=== PATIENT | male | born 1990 | race African-American/Black ===

== ENCOUNTER 2019-11-05 16:37 | Emergency (ER) | payer MEDICAID ==
[~2019-11-05] VITALS: Ht 170.2 cm; Wt 69.9 kg
--- NOTE | 2019-11-05 16:53 | NUR ---
ED Nurse Note: Patient walked into ED c/o abdominal pain x1 month. Pt was seen at [facility] for the whole 2 months for the same sx and was prescribed with antacids but no relief. Hx of hernia. Denies nausea/ vomiting. Reports diarrhea x1 month. Pt is at the [facility] and collecting urine.
[2019-11-05 17:07] VITALS: BP 116/78
[2019-11-05 17:09] LABS: APPEARANCE,URINE CLEAR; BILIRUBIN, URINE NEGATIVE (NEGATIVE); COLOR,URINE PALE YELLOW; GLUCOSE, URINE (UA) NEGATIVE (NEGATIVE); KETONES,URINE NEGATIVE (NEGATIVE); LEUKOCYTE ESTERASE ,URINE 1+ (NEGATIVE); NITRITE,URINE NEGATIVE (NEGATIVE); PH,URINE 6.5 (4.5-8.0); PROTEIN,URINE NEGATIVE (NEGATIVE); UROBILINOGEN,URINE NORMAL MG/DL (0.0-1.0)
[2019-11-05] MEDS ORDERED: ZOFRAN4 M3 ORAL (17:10)
[2019-11-05] MEDS ORDERED: CARAFATE1 G1 ORAL (17:10)
[2019-11-05] MEDS ORDERED: PANTOPRAZOLE SO40 MG ORAL (17:10)
[2019-11-05] MEDS ORDERED: LORATADINE10 M1 PO (17:10)
[2019-11-05] MEDS ORDERED: VENTOLIN HFA18 GM INH (17:10)
[2019-11-05] MEDS ORDERED: POLYETHYLENE GL17 GM ORAL (17:10)
[2019-11-05] MEDS ORDERED: FAMOTIDINE20 MG ORAL (17:10)
[2019-11-05] MEDS ORDERED: DICYCLOMINE HCL10 MG ORAL (17:10)
[2019-11-05] MEDS ORDERED: COLACE100 MG ORAL (17:10)
[2019-11-05] MEDS ORDERED: SENNO8.6 MG ORAL (17:10)
[2019-11-05] MEDS ORDERED: MI-ACID80 MG PO (17:10)
[2019-11-05 17:11] LABS: BASOPHILS % (AUTO) 1.5 % (0.0-2.0); EOSINOPHILS % (AUTO) 1.9 % (0.0-3.0); HEMOGLOBIN 15.9 G/DL (14.2-18.0); LYMPHOCYTES % (AUTO) 37.9 % (20.0-45.0); MEAN CORPUSCULAR VOLUME 98 FL (80-99); MONOCYTES % (AUTO) 7.6 % (1.0-10.0); NEUTROPHILS % (AUTO) 51.1 % (45.0-75.0); PLATELET COUNT 231 K/UL (150-450); RED BLOOD COUNT 4.99 M/UL (4.70-6.10); RED CELL DISTRIBUTION WIDTH 11.7 % (11.6-14.8)
--- NOTE | 2019-11-05 17:14 | NUR ---
ED Nurse Note: Labs sent and EDPA is at the bed side
--- NOTE | 2019-11-05 17:21 | Emergency Room Report ---
History of Present Illness General Chief Complaint: Abdominal Pain Source: Patient (Judit Sharif) Present Illness HPI 29-year-old male presents to the emergency department complaining of 8 out of 10 severity abdominal discomfort that he describes as cramping and bloated sensation in addition to left lower inguinal/testicular pain. Patient reports inguinal and testicular pain began 3 days ago and have progressed. Patient reports he has been having off-and-on abdominal symptoms for most 2 months. Patient states he has been seen multiple times at [facility] and was told to follow-up with a GI specialist and was prescribed anti-acids as well as some laxatives. Patient reports he had one episode of diarrhea today. Patient reports he has been having diarrhea almost daily for 1 month. He denies blood in the stool or black tarry stools. He reports he is concerned as he is unable to pass gas. He reports on occasion feeling lightheaded. He denies nausea or vomiting, fevers or chills. He reports healthy diet with lots of vegetables. He denies ETOH use. He denies hx of GI symptoms/problems in the past prior to onset 2 months ago. He does reports hx of hernia when he was a kid in the left inguinal area. He reports he used to work out regularly but denies recent strenuous activities. he reports feeling severely bloated in his stomach area. Denies penile d/c or dysuria. (Judit Sharif) Allergies: Coded Allergies: No Known Allergies (Unverified , 11/05/19) COVID-19 Screening Contact w/high risk pt: No Recent Travel to affected area: No Experienced COVID-19 symptoms?: No (Judit Sharif) Patient History Past Medical History: see triage record Past Surgical History: none Pertinent Family History: none Reviewed Nursing Documentation: PMH: Agreed; PSxH: Agreed (Judit Sharif) Nursing Documentation-PMH Hx Asthma: Yes (Judit Sharif) Review of Systems All Other Systems: negative except mentioned in HPI (Judit Sharif) Physical Exam Vital Signs Date Time Temp Pulse Resp B/P (MAP) Pulse Ox O2 Delivery O2 Flow Rate FiO2 11/05/19 16:41 98.1 116 19 116/78 (91) 97 Room Air Sp02 EP Interpretation: reviewed, normal General Appearance: no apparent distress, alert, GCS 15, non-toxic Head: normocephalic, atraumatic Eyes: bilateral eye normal inspection, bilateral eye PERRL ENT: hearing grossly normal, normal voice Neck: full range of motion Respiratory: lungs clear, normal breath sounds, speaking full sentences Cardiovascular #1: regular rate, rhythm Gastrointestinal: normal bowel sounds, soft, non-distended, tenderness - diffuuse, LLQ and left inguinal TTP, NO palpable hernia Rectal: deferred Genitourinary: normal inspection, no CVA tenderness, other - normal cremasteric reflex. No obvious testicular swelling, palpable hernia. Musculoskeletal: back normal, normal range of motion, gait/station normal, non- tender Neurologic: alert, motor strength/tone normal, oriented x3, sensory intact, responsive, speech normal Psychiatric: judgement/insight normal Skin: no rash, normal color, normal inspection Lymphatic: no adenopathy (Judit Sharif) Medical Decision Making PA Attestation Dr. Lay is my supervising Physician whom patient management has been discussed with. (Judit Sharif) Diagnostic Impression: Primary Impression: Abdominal pain Qualified Codes: R10.84 - Generalized abdominal pain ER Course 29-year-old male presents to the emergency department complaining of 8 out of 10 severity abdominal discomfort that he describes as cramping and bloated sensation in addition to left lower inguinal/testicular pain. Patient reports inguinal and testicular pain began 3 days ago and have progressed. Patient reports he has been having off-and-on abdominal symptoms for most 2 months. Patient states he has been seen multiple times at [facility] and was told to follow-up with a GI specialist and was prescribed anti-acids as well as some laxatives. Patient reports he had one episode of diarrhea today. Patient reports he has been having diarrhea almost daily for 1 month. He denies blood in the stool or black tarry stools. He reports he is concerned as he is unable to pass gas. He reports on occasion feeling lightheaded. He denies nausea or vomiting, fevers or chills. He reports healthy diet with lots of vegetables. He denies ETOH use. He denies hx of GI symptoms/problems in the past prior to onset 2 months ago. He does reports hx of hernia when he was a kid in the left inguinal area. He reports he used to work out regularly but denies recent strenuous activities. he reports feeling severely bloated in his stomach area. Denies penile d/c or dysuria. Ddx considered but are not limited to Diverticulitis, acute appy, diarrhea,UC, PUD, GE, pancreatitis, gallstone, hernia, testicular torsion, epididymitis, UTI or STD just to name a few Vital signs: are WNL, pt. is afebrile H&PE are most consistent with abdominal pain with ORDERS: CBC:WNL -CMP: WNL -Lipase:WNL - UA: WNL -CT abdomen and Pelvis W. Contrast: Pending at time of sign out - Testicular US: Bilateral Hydrocele, small cyst in the right epididymis. ED INTERVENTIONS: -- 1000NS - Pepcid 20mg IV DISPOSITION: Pending CT imaging results. Signed out to attending physician. Labs Test 11/05/19 17:00 White Blood Count 8.0 K/UL (4.8-10.8) Red Blood Count 4.99 M/UL (4.70-6.10) Hemoglobin 15.9 G/DL (14.2-18.0) Hematocrit 49.0 % (42.0-52.0) Mean Corpuscular Volume 98 FL (80-99) Mean Corpuscular Hemoglobin 31.8 PG (27.0-31.0) Mean Corpuscular Hemoglobin Concent 32.4 G/DL (32.0-36.0) Red Cell Distribution Width 11.7 % (11.6-14.8) Platelet Count 231 K/UL (150-450) Mean Platelet Volume 8.7 FL (6.5-10.1) Neutrophils (%) (Auto) 51.1 % (45.0-75.0) Lymphocytes (%) (Auto) 37.9 % (20.0-45.0) Monocytes (%) (Auto) 7.6 % (1.0-10.0) Eosinophils (%) (Auto) 1.9 % (0.0-3.0) Basophils (%) (Auto) 1.5 % (0.0-2.0) Urine Color Pale yellow Urine Appearance Clear Urine pH 6.5 (4.5-8.0) Urine Specific Herman 1.015 (1.005-1.035) Urine Protein Negative (NEGATIVE) Urine Glucose (UA) Negative (NEGATIVE) Urine Ketones Negative (NEGATIVE) Urine Blood 2+ (NEGATIVE) Urine Nitrite Negative (NEGATIVE) Urine Bilirubin Negative (NEGATIVE) Urine Urobilinogen Normal MG/DL (0.0-1.0) Urine Leukocyte Esterase 1+ (NEGATIVE) Urine RBC 2-4 /HPF (0 - 0) Urine WBC 0-2 /HPF (0 - 0) Urine Squamous Epithelial Cells None /LPF (NONE/OCC) Urine Bacteria Few /HPF (NONE) Sodium Level 142 MMOL/L (136-145) Potassium Level 3.7 MMOL/L (3.5-5.1) Chloride Level 101 MMOL/L (98-107) Carbon Dioxide Level 28 MMOL/L (21-32) Anion Gap 13 mmol/L (5-15) Blood Urea Nitrogen 12 mg/dL (7-18) Creatinine 1.2 MG/DL (0.55-1.30) Estimat Glomerular Filtration Rate > 60 mL/min (>60) Glucose Level 111 MG/DL (74-106) Calcium Level 9.4 MG/DL (8.5-10.1) Total Bilirubin 0.9 MG/DL (0.2-1.0) Aspartate Amino Transf (AST/SGOT) 22 U/L (15-37) Alanine Aminotransferase (ALT/SGPT) 17 U/L (12-78) Alkaline Phosphatase 49 U/L (46-116) Total Protein 8.6 G/DL (6.4-8.2) Albumin 4.6 G/DL (3.4-5.0) Globulin 4.0 g/dL Albumin/Globulin Ratio 1.1 (1.0-2.7) Lipase 119 U/L (73-393) (Judit Sharif) ER Course Please refer to the initial note for the history exam and presentation Patient did have ultrasound and CT of the abdomen pelvis obtained the ultrasound had shown an epididymal cyst And questionable hydrocele no obvious torsion patient CT showing different Findings including thickened bladder wall Patient's main complaint is diffuse mid abdominal and bilateral flank region discomfort bloating sensation and diarrhea the findings do not correlate clinically to the patient's CT findings and appears to be incidental findings There is evidence of diarrhea however on the CAT scan which does correlate clinically Patient is discussed regarding taking a fiber type diet patient also requires [place] diet and reports that he has follow-up coming with his primary physician for further GI specialty referral Which I think is the best follow-up for the patient Given the lack of any emergent findings on CT Patient's blood work is all within normal limits Patient is stable for initial conservative outpatient trial Labs Test 11/05/19 17:00 White Blood Count 8.0 K/UL (4.8-10.8) Red Blood Count 4.99 M/UL (4.70-6.10) Hemoglobin 15.9 G/DL (14.2-18.0) Hematocrit 49.0 % (42.0-52.0) Mean Corpuscular Volume 98 FL (80-99) Mean Corpuscular Hemoglobin 31.8 PG (27.0-31.0) Mean Corpuscular Hemoglobin Concent 32.4 G/DL (32.0-36.0) Red Cell Distribution Width 11.7 % (11.6-14.8) Platelet Count 231 K/UL (150-450) Mean Platelet Volume 8.7 FL (6.5-10.1) Neutrophils (%) (Auto) 51.1 % (45.0-75.0) Lymphocytes (%) (Auto) 37.9 % (20.0-45.0) Monocytes (%) (Auto) 7.6 % (1.0-10.0) Eosinophils (%) (Auto) 1.9 % (0.0-3.0) Basophils (%) (Auto) 1.5 % (0.0-2.0) Urine Color Pale yellow Urine Appearance Clear Urine pH 6.5 (4.5-8.0) Urine Specific Herman 1.015 (1.005-1.035) Urine Protein Negative (NEGATIVE) Urine Glucose (UA) Negative (NEGATIVE) Urine Ketones Negative (NEGATIVE) Urine Blood 2+ (NEGATIVE) Urine Nitrite Negative (NEGATIVE) Urine Bilirubin Negative (NEGATIVE) Urine Urobilinogen Normal MG/DL (0.0-1.0) Urine Leukocyte Esterase 1+ (NEGATIVE) Urine RBC 2-4 /HPF (0 - 0) Urine WBC 0-2 /HPF (0 - 0) Urine Squamous Epithelial Cells None /LPF (NONE/OCC) Urine Bacteria Few /HPF (NONE) Sodium Level 142 MMOL/L (136-145) Potassium Level 3.7 MMOL/L (3.5-5.1) Chloride Level 101 MMOL/L (98-107) Carbon Dioxide Level 28 MMOL/L (21-32) Anion Gap 13 mmol/L (5-15) Blood Urea Nitrogen 12 mg/dL (7-18) Creatinine 1.2 MG/DL (0.55-1.30) Estimat Glomerular Filtration Rate > 60 mL/min (>60) Glucose Level 111 MG/DL (74-106) Calcium Level 9.4 MG/DL (8.5-10.1) Total Bilirubin 0.9 MG/DL (0.2-1.0) Aspartate Amino Transf (AST/SGOT) 22 U/L (15-37) Alanine Aminotransferase (ALT/SGPT) 17 U/L (12-78) Alkaline Phosphatase 49 U/L (46-116) Total Protein 8.6 G/DL (6.4-8.2) Albumin 4.6 G/DL (3.4-5.0) Globulin 4.0 g/dL Albumin/Globulin Ratio 1.1 (1.0-2.7) Lipase 119 U/L (73-393) (Mirna Lay DO) CT/MRI/US Diagnostic Results CT/MRI/US Diagnostic Results #1: Imaging Test Ordered: CT abdomen and Pelvis W. IV and Oral Contrast Impression " ". -- Per official radiology report- Please see report for specific details. CT/MRI/US Diagnostic Results #2: Imaging Test Ordered: Testicular US Impression "Bilateral hydroceles and small cyst in the right epididymis, no torsion, no visualized hernia". -- Per US technologist. (Judit Sharif) CT/MRI/US Diagnostic Results : Impression CT abdomen pelvisIMPRESSION: Urinary bladder wall thickening. Consider chronic outlet obstruction from prostatomegaly. The lumen is not pathologically distended currently. Cystitis is not excluded. Liquid distal colonic contents suggesting diarrhea. No bowel obstruction or perforation. Testicular ultrasound no obvious torsion (Mirna Lay DO) Last Vital Signs Date Time Temp Pulse Resp B/P (MAP) Pulse Ox O2 Delivery O2 Flow Rate FiO2 11/05/19 17:07 98.1 19 116/78 97 Room Air 11/05/19 17:07 116 (Judit Sharif) Status: improved (Mirna Lay DO) Disposition: HOME, SELF-CARE Condition: Stable Signed Out To: Dr. Lay (Judit Sharif) Scripts Metoclopramide Hcl* (REGLAN*) 10 Mg Tablet 10 MG ORAL BID, #15 TAB Prov: Mirna Lay DO 11/05/19 Referrals: NON PHYSICIAN (PCP) Additional Instructions: Patient is provided with the discharge instructions notified to follow up with primary doctor in the next 2-3 days otherwise return to the er with any worsening symptoms. Please note that this report is being documented using DRAGON technology. This can lead to erroneous entry secondary to incorrect interpretation by the dictating instrument. Judit Sharif November 05, 2019 17:21 Mirna Lay DO November 05, 2019 21:08
[2019-11-05 17:24] LABS: ANION GAP 13 mmol/L (5-15); BLOOD UREA NITROGEN 12 mg/dL (7-18); CALCIUM 9.4 MG/DL (8.5-10.1); CARBON DIOXIDE 28 MMOL/L (21-32); CHLORIDE 101 MMOL/L (98-107); CREATININE 1.2 MG/DL (0.55-1.30); POTASSIUM 3.7 MMOL/L (3.5-5.1); SODIUM 142 MMOL/L (136-145)
[2019-11-05 17:28] LABS: ALANINE AMINOTRANSFERASE 17 U/L (12-78); ALBUMIN 4.6 G/DL (3.4-5.0); ALBUMIN/GLOBULIN RATIO 1.1 (1.0-2.7); ALKALINE PHOSPHATASE 49 U/L (46-116); ASPARTATE AMINO TRANSFERASE 22 U/L (15-37); BILIRUBIN,TOTAL 0.9 MG/DL (0.2-1.0)
[2019-11-05] MEDS ORDERED: Omnipaque-300 100ml vial INJ PRN (17:30)
--- NOTE | 2019-11-05 18:10 | NUR ---
ED Nurse Note: Ultrasound at bedside.
--- NOTE | 2019-11-05 18:55 | NUR ---
ED Nurse Note: patient came back from CT scan in stable condition.
--- NOTE | 2019-11-05 19:10 | NUR ---
HAND-OFF: Report given to BALTAZAR Noble.
--- NOTE | 2019-11-05 19:15 | NUR ---
ED Nurse Note: Report received from BALTAZAR Trevino. Pt is aaox4, NAD. Pt is resting in bed.
--- NOTE | 2019-11-05 19:50 | Diagnostic Imaging Report ---
EXAM: CT Abdomen and Pelvis With Intravenous Contrast CLINICAL HISTORY: PAIN TECHNIQUE: Axial computed tomography images of the abdomen and pelvis with intravenous contrast. CTDI is 4.6 mGy and DLP is 240.9 mGy-cm. One or more of the following dose reduction techniques were used: automated exposure control, adjustment of the mA and/or kV according to patient size, use of iterative reconstruction technique. COMPARISON: No relevant prior studies available. FINDINGS: Lung bases: Unremarkable. No mass. No consolidation. ABDOMEN: Liver: 5 mm hypodensity in the inferior right hepatic lobe on series 4, image 25. Lesion is too small to characterize, but statistically speaking, most likely reflects a small cyst.. Gallbladder and bile ducts: Unremarkable. No calcified stones. No ductal dilation. Pancreas: Unremarkable. No mass. No ductal dilation. Spleen: Unremarkable. No splenomegaly. Adrenals: Unremarkable. No mass. Kidneys and ureters: Unremarkable. No solid mass. No hydronephrosis. Stomach and bowel: Liquid distal colonic contents suggesting diarrhea. No bowel obstruction or perforation.. PELVIS: Appendix: The appendix is not clearly demonstrated, despite obtaining thin section reconstructions. Bladder: Mild wall thickening for the degree of distention. Consider outlet obstruction from prostatomegaly. Cystitis is not excluded. Reproductive: Unremarkable as visualized. ABDOMEN and PELVIS: Intraperitoneal space: Unremarkable. No free air. No significant fluid collection. Bones/joints: No acute fracture. No dislocation. Soft tissues: Unremarkable. Vasculature: Unremarkable. No abdominal aortic aneurysm. Lymph nodes: Unremarkable. No enlarged lymph nodes. IMPRESSION: Urinary bladder wall thickening. Consider chronic outlet obstruction from prostatomegaly. The lumen is not pathologically distended currently. Cystitis is not excluded. Liquid distal colonic contents suggesting diarrhea. No bowel obstruction or perforation.
[2019-11-05] MEDS ORDERED: REGLAN10 MG ORAL (20:12)
[2019-11-05 20:24] VITALS: BP 120/75
--- NOTE | 2019-11-05 20:24 | NUR ---
ER DISCHARGE NOTE: Patient is cleared to be discharged per ERMD, pt is aox4, on room air, with stable vital signs. pt was given dc and prescription instructions, pt was able to verbalize understanding, pt id band and iv site removed without complications. pt is able to ambulate with steady gait. pt took all belongings.
--- NOTE | 2019-11-06 09:10 | Diagnostic Imaging Report ---
Indications: left testicular pain, left inguinal area pain Technique: Grayscale and duplex images of the scrotum Comparison: none Findings:The right testicle measures 3.6 cm in length. It demonstrates normal echogenicity. Normal Doppler flow. A 5 mm cyst is seen in the right epididymal head. There is a minimal hydrocele. The left testicle measures 3.2 cm in length. It demonstrates normal echogenicity and normal Doppler flow. Normal epididymis. Small hydrocele demonstrated. The left inguinal canal is unremarkable, no evidence of herniated bowel Impression: No acute abnormality Incidental findings of small bilateral hydroceles, small cyst in the right epididymal head
== END 2019-11-05 20:24 | disposition home or self-care (01) ==
LOC: EMR 16:58
DX: R10.84 Generalized abdominal pain (principal); R19.7 Diarrhea, unspecified; N50.3 Cyst of epididymis; N40.0 Benign prostatic hyperplasia without lower urinary tract symptoms
CPT/HCPCS: 36415; 74177; 76870; 80053; 81003; 83690; 85025; 96361; 96374; J7030; Q9967; S0028; Z7502; 99284

== ENCOUNTER 2019-11-22 23:27 | Emergency (ER) | payer MEDICAID ==
[~2019-11-22] VITALS: Ht 172.7 cm; Wt 65.8 kg
[~2019-11-22 23:27] MED LIST: CARAFATE1 G1 ORAL; COLACE100 MG ORAL; DICYCLOMINE HCL10 MG ORAL; FAMOTIDINE20 MG ORAL; LORATADINE10 M1 PO; MI-ACID80 MG PO; PANTOPRAZOLE SO40 MG ORAL; POLYETHYLENE GL17 GM ORAL; REGLAN10 MG ORAL; SENNO8.6 MG ORAL; VENTOLIN HFA18 GM INH; ZOFRAN4 M3 ORAL
[2019-11-22 23:35] VITALS: BP 128/82
--- NOTE | 2019-11-22 23:35 | NUR ---
ED Nurse Note: PT WALKED IN C/O RT SIDE ABDOMINAL PAIN X1DAY. PTIENT REPORTS USING DICLOFENAC CREAM ON THE ABDOMEN AND THE PAIN GOTWORSE. REPORTS 8/10 INTERMITTENT PAIN. DENIES NAUSEA, VSS, NAD, AAOX4, AMBULATORY. ERMD AT BEDSIDE.
--- NOTE | 2019-11-22 23:40 | NUR ---
ED Nurse Note: BLOOD AND URINE COLLECTED AND SENT TO LAB
[2019-11-23] MEDS ORDERED: Ketorolac 30mg Inj IV ONE
[2019-11-23 00:05] LABS: APPEARANCE,URINE CLEAR; BILIRUBIN, URINE NEGATIVE (NEGATIVE); COLOR,URINE PALE YELLOW; GLUCOSE, URINE (UA) NEGATIVE (NEGATIVE); KETONES,URINE NEGATIVE (NEGATIVE); LEUKOCYTE ESTERASE ,URINE NEGATIVE (NEGATIVE); NITRITE,URINE NEGATIVE (NEGATIVE); PH,URINE 6.5 (4.5-8.0); PROTEIN,URINE NEGATIVE (NEGATIVE); UROBILINOGEN,URINE NORMAL MG/DL (0.0-1.0)
--- NOTE | 2019-11-23 00:07 | Emergency Room Report ---
History of Present Illness General Chief Complaint: Abdominal Pain Source: Patient Present Illness HPI Patient presents with abdominal pain. He started having problems in mid September. He has been seen multiple times for this. Tonight he applied diclofenac cream and it caused more spasms in his abdomen. Initially he was having difficulty with constipation that has persisted. He is taking a powder but still is not moving his bowels very well. He feels distended and is not eating very well. He is not moving his bowels very well. He rates the pain 7/10 in the right lower quadrant at this time. He denies any hematochezia or passing any blood. There is no dysuria. He denies any fevers or chills. He denies nausea and vomiting. He was taking Tylenol before for the discomfort in his abdomen. He says that he has been worked up here in the past. No sore throat, chest pain, palpitations, dysuria, shortness of breath, joint pain, rashes, visual changes, dizziness, headache. Med recon with multiple meds for reflux, constipation and spasms. November 04 history: 29-year-old male presents to the emergency department complaining of 8 out of 10 severity abdominal discomfort that he describes as cramping and bloated sensation in addition to left lower inguinal/testicular pain. Patient reports inguinal and testicular pain began 3 days ago and have progressed. Patient reports he has been having off-and-on abdominal symptoms for most 2 months. Patient states he has been seen multiple times at [facility] and was told to follow-up with a GI specialist and was prescribed anti-acids as well as some laxatives. Patient reports he had one episode of diarrhea today. Patient reports he has been having diarrhea almost daily for 1 month. He denies blood in the stool or black tarry stools. He reports he is concerned as he is unable to pass gas. He reports on occasion feeling lightheaded. He denies nausea or vomiting, fevers or chills. He reports healthy diet with lots of vegetables. He denies ETOH use. He denies hx of GI symptoms/problems in the past prior to onset 2 months ago. He does reports hx of hernia when he was a kid in the left inguinal area. He reports he used to work out regularly but denies recent strenuous activities. he reports feeling severely bloated in his stomach area. Denies penile d/c or dysuria. A CT scan was performed. Results: Urinary bladder wall thickening. Consider chronic outlet obstruction from prostatomegaly. The lumen is not pathologically distended currently. Cystitis is not excluded. Liquid distal colonic contents suggesting diarrhea. No bowel obstruction or perforation. Testicular ultrasound was performed also which revealed bilateral hydroceles but no pathology. Labs were performed on that date with a normal CBC and CMP in addition lipase was normal. Allergies: Coded Allergies: No Known Allergies (Unverified , 11/05/19) COVID-19 Screening Contact w/high risk pt: No Recent Travel to affected area: No Experienced COVID-19 symptoms?: No COVID-19 Testing performed [employer] REPAIRER: No Patient History Past Medical History: see triage record, old chart reviewed Past Surgical History: other - L inguinal hernia as a child Social History: Denies: smoking, alcohol use Social History Narrative Brought by his mom Reviewed Nursing Documentation: PMH: Agreed; PSxH: Agreed Nursing Documentation-PMH Hx Asthma: Yes Hx COPD: Yes - bronchitis Review of Systems All Other Systems: negative except mentioned in HPI Physical Exam Vital Signs Date Time Temp Pulse Resp B/P (MAP) Pulse Ox O2 Delivery O2 Flow Rate FiO2 11/22/19 23:32 98.2 72 16 128/82 (97) 98 Room Air Sp02 EP Interpretation: reviewed, normal General Appearance: well appearing, no apparent distress, GCS 15, non-toxic Head: normocephalic Eyes: bilateral eye normal inspection, bilateral eye PERRL, bilateral eye EOMI ENT: moist mucus membranes - but coating of tongue suggests some dehydration Neck: full range of motion, supple Respiratory: lungs clear, normal breath sounds Cardiovascular #1: regular rate, rhythm Cardiovascular #2: 2+ radial (R) Gastrointestinal: normal inspection, normal bowel sounds - passive, no mass, no guarding, no rebound, distended - minimally, tenderness - diffuse, but more RLQ Genitourinary: no CVA tenderness Musculoskeletal: back normal, normal range of motion, gait/station normal Neurologic: alert, oriented x3, grossly normal Psychiatric: anxious Skin: no rash, warm/dry Medical Decision Making Diagnostic Impression: Primary Impression: Abdominal pain Qualified Codes: R10.31 - Right lower quadrant pain Additional Impressions: Dehydration Constipation Qualified Codes: K59.00 - Constipation, unspecified ER Course Patient presents with right lower quadrant pain that is been intermittent since mid September. Differential includes constipation, muscle strain, constipation, urinary tract infection, appendicitis amongst others. The patient appears dehydrated at this time in addition. Will be evaluated with labs. He will receive IV hydration and a dose of ketorolac. Prior work-up will be reviewed. Imaging studies not indicated at this time. Patient's history is fairly complex as this is been ongoing for several months with variable symptoms. Labs remarkable for normality. (See history where prior studies reviewed.) Pain improved with treatment. Discussed treatment plan with patient. Laboratory Tests Test 11/22/19 23:45 11/23/19 00:00 Urine Color Pale yellow Urine Appearance Clear Urine pH 6.5 (4.5-8.0) Urine Specific [place] 1.005 (1.005-1.035) Urine Protein Negative (NEGATIVE) Urine Glucose (UA) Negative (NEGATIVE) Urine Ketones Negative (NEGATIVE) Urine Blood Negative (NEGATIVE) Urine Nitrite Negative (NEGATIVE) Urine Bilirubin Negative (NEGATIVE) Urine Urobilinogen Normal MG/DL (0.0-1.0) Urine Leukocyte Esterase Negative (NEGATIVE) Urine Opiates Screen Negative (NEGATIVE) Urine Barbiturates Screen Negative (NEGATIVE) Phencyclidine (PCP) Screen Negative (NEGATIVE) Urine Amphetamines Screen Negative (NEGATIVE) Urine Benzodiazepines Screen Negative (NEGATIVE) Urine Cocaine Screen Negative (NEGATIVE) Urine Marijuana (THC) Screen Negative (NEGATIVE) White Blood Count 6.4 K/UL (4.8-10.8) Red Blood Count 4.75 M/UL (4.70-6.10) Hemoglobin 15.6 G/DL (14.2-18.0) Hematocrit 42.5 % (42.0-52.0) Mean Corpuscular Volume 89 FL (80-99) Mean Corpuscular Hemoglobin 32.9 PG (27.0-31.0) H Mean Corpuscular Hemoglobin Concent 36.8 G/DL (32.0-36.0) H Red Cell Distribution Width 10.2 % (11.6-14.8) L Platelet Count 250 K/UL (150-450) Mean Platelet Volume 6.8 FL (6.5-10.1) Neutrophils (%) (Auto) 55.4 % (45.0-75.0) Lymphocytes (%) (Auto) 33.7 % (20.0-45.0) Monocytes (%) (Auto) 9.0 % (1.0-10.0) Eosinophils (%) (Auto) 0.9 % (0.0-3.0) Basophils (%) (Auto) 1.1 % (0.0-2.0) Sodium Level 141 MMOL/L (136-145) Potassium Level 3.7 MMOL/L (3.5-5.1) Chloride Level 102 MMOL/L (98-107) Carbon Dioxide Level 31 MMOL/L (21-32) Anion Gap 9 mmol/L (5-15) Blood Urea Nitrogen 7 mg/dL (7-18) Creatinine 1.1 MG/DL (0.55-1.30) Estimated Glomerular Filtration Rate > 60 mL/min (>60) Glucose Level 91 MG/DL (74-106) Calcium Level 9.3 MG/DL (8.5-10.1) Total Bilirubin 0.9 MG/DL (0.2-1.0) Aspartate Amino Transferase (AST) 21 U/L (15-37) Alanine Aminotransferase (ALT) 14 U/L (12-78) Alkaline Phosphatase 48 U/L (46-116) Total Creatine Kinase 142 U/L (26-308) Total Protein 8.0 G/DL (6.4-8.2) Albumin 4.5 G/DL (3.4-5.0) Globulin 3.5 g/dL Albumin/Globulin Ratio 1.3 (1.0-2.7) Lipase 99 U/L (73-393) Rhythm Strip Diag. Results EP Interpretation: yes Rhythm: NSR, no PVC's, no ectopy Last Vital Signs Date Time Temp Pulse Resp B/P (MAP) Pulse Ox O2 Delivery O2 Flow Rate FiO2 11/23/19 01:15 98.3 16 128/82 98 Room Air 99 11/23/19 01:00 82 Status: improved Disposition: HOME, SELF-CARE Condition: Improved Scripts Acetaminophen (Tylenol) 325 Mg Tablet 650 MG ORAL Q6H PRN for Prn Pain/Headache/Temp > 101, #20 TAB 0 Refills Prov: Johnnie You MD 11/23/19 Ibuprofen* (MOTRIN*) 600 Mg Tablet 600 MG ORAL Q8H PRN for FOR PAIN, #16 TAB 0 Refills Prov: Johnnie You MD 11/23/19 Dicyclomine Hcl* (DICYCLOMINE HCL*) 10 Mg Capsule 10 MG ORAL TID PRN for abdominal cramps, #10 CAP 1 Refill Prov: Johnnie You MD 11/23/19 Lactulose (LACTULOSE*) 20 Gm/30 Ml Solution 30 ML ORAL BID PRN for constipation, #240 ML 0 Refills Prov: Johnnie You MD 11/23/19 Johnnie You MD November 23, 2019 00:07
[2019-11-23 00:13] LABS: BASOPHILS % (AUTO) 1.1 % (0.0-2.0); EOSINOPHILS % (AUTO) 0.9 % (0.0-3.0); HEMATOCRIT 42.5 % (42.0-52.0); HEMOGLOBIN 15.6 G/DL (14.2-18.0); LYMPHOCYTES % (AUTO) 33.7 % (20.0-45.0); MEAN CORPUSCULAR VOLUME 89 FL (80-99); NEUTROPHILS % (AUTO) 55.4 % (45.0-75.0); PLATELET COUNT 250 K/UL (150-450); RED BLOOD COUNT 4.75 M/UL (4.70-6.10); RED CELL DISTRIBUTION WIDTH 10.2 % (11.6-14.8); WHITE BLOOD COUNT 6.4 K/UL (4.8-10.8)
[2019-11-23 00:25] LABS: ANION GAP 9 mmol/L (5-15); BLOOD UREA NITROGEN 7 mg/dL (7-18); CALCIUM 9.3 MG/DL (8.5-10.1); CARBON DIOXIDE 31 MMOL/L (21-32); CHLORIDE 102 MMOL/L (98-107); CREATININE 1.1 MG/DL (0.55-1.30); POTASSIUM 3.7 MMOL/L (3.5-5.1); SODIUM 141 MMOL/L (136-145)
[2019-11-23 00:29] LABS: ALANINE AMINOTRANSFERASE 14 U/L (12-78); ALBUMIN 4.5 G/DL (3.4-5.0); ALBUMIN/GLOBULIN RATIO 1.3 (1.0-2.7); ALKALINE PHOSPHATASE 48 U/L (46-116); ASPARTATE AMINO TRANSFERASE 21 U/L (15-37); BILIRUBIN,TOTAL 0.9 MG/DL (0.2-1.0); CREATINE KINASE 142 U/L (26-308)
[2019-11-23] MEDS ORDERED: IBUPROFEN600 M1 ORAL (00:58)
[2019-11-23] MEDS ORDERED: TYLENOL325 MG ORAL (00:58)
[2019-11-23] MEDS ORDERED: LACTULOSE20 GM/301 ORAL (00:58)
[2019-11-23] MEDS ORDERED: DICYCLOMINE HCL10 MG ORAL (00:58)
[2019-11-23 01:00] VITALS: BP 118/75
[2019-11-23 01:15] VITALS: BP 128/82
== END 2019-11-23 01:15 | disposition home or self-care (01) ==
LOC: EMR 23:50
DX: R10.31 Right lower quadrant pain (principal); K59.00 Constipation, unspecified; E86.0 Dehydration; J40 Bronchitis, not specified as acute or chronic
CPT/HCPCS: 36415; 80053; 80307; 81003; 82550; 83690; 85025; 96361; 96374; J1885; J7030; Z7502; 99284